=== PATIENT | male | born 1965 | race Caucasian/White ===

== ENCOUNTER 2023-06-15 07:40 | Day surgery (SDC) | payer OTHER ==
[2023-06-15] MEDS ORDERED: Lidocaine 1% PF 5 ML VIAL ONE (07:53)
[2023-06-15] MEDS ORDERED: Sodium Bicarbonate 2.5 MEQ/5 ML SDV ONE (07:53)
[2023-06-15 08:19] VITALS: BP 123/73; TEMP 97.9
[2023-06-15] MEDS ORDERED: Iopamidol-M 300 61% 15 ML VIAL ONE (10:12)
== END 2023-06-15 10:01 | disposition home or self-care (01) ==
LOC: CSHRAD 07:40
PROVIDERS: ATTEND Neurological Surgery
PROC: 3E0R3KZ Introduction of Other Diagnostic Substance into Spinal Canal, Percutaneous Approach (ICD-10-PCS; principal; 2023-06-15)
DX: M54.12 Radiculopathy, cervical region (principal); Z88.0 Allergy status to penicillin; Z88.5 Allergy status to narcotic agent
CPT/HCPCS: 62302; 72126